=== PATIENT | male | born 1980 | race Caucasian/White ===

== ENCOUNTER 2021-09-16 14:11 | Emergency (ER) | payer BC ==
--- NOTE | 2021-09-16 14:40 | ED Physician Documentation ---
PD HPI LOWER EXT INJURY - Stated complaint Stated Complaint: L LEG CUT - Chief complaint Chief Complaint: Laceration - History obtained from History obtained from: Patient - History of Present Illness PD HPI LOW EXT INJURY LOCATION: Left, Lower leg Type of injury: Laceration (using chainsaw and tip slipped and cut just to inside of chainsaw chaps, through pants. Able to walk. He quickly bandaged it/direct pressure for bleeding. No spurting of blood.) Timing - onset: Today (just [employer]) Timing - details: Abrupt onset, Still present Worsened by: Palpating Associated symptoms: No: Weakness, Numbness Similar symptoms before: Has not had sx before Review of Systems Skin: reports: Laceration (s) Neurologic: denies: Focal weakness, Numbness PD PAST MEDICAL HISTORY - Past Medical History Cardiovascular: None Respiratory: None Endocrine/Autoimmune: None - Allergies Allergies/Adverse Reactions: Allergies Allergy/AdvReac Type Severity Reaction Status Date / Time Penicillins Allergy Unknown Verified 09/16/21 14:37 PD ED PE NORMAL - Vitals Vital signs reviewed: Yes - General General: Alert and oriented X 3, No acute distress, Well developed/nourished - Derm Derm: Normal color, Warm and dry - Extremities Extremities: Other (left anteromedial vertical lac to fatty tissue just medial to anterior tibial ridge with mild sawdust and clothing fibers seen superficially and removed. edges are irregular c/w chainsaw injury. ) - Neuro Neuro: Alert and oriented X 3, No motor deficit, No sensory deficit Results - Vitals Vitals: Oxygen O2 Source Room air - Rads (name of study) left tib/fib Radiology: Prelim report reviewed, See rad report (no fracture, no FB. soft tissue lucencies c/w laceration.) Procedures - Laceration (location) left lower leg anteriorly Length in cm: 6 Wound type: Linear, Into subcut fat, Contaminated (small pieces of clothing threads and some sawdust appearance, easily removed with forceps and irrigation until clean.) Neurovascular status: Sensory intact, Motor intact, Vascular intact Anesthesia: Lidocaine 1% with epi Wound preparation: Irrigated copiously NS, Wound explored, To the base, FB identified, FB removed, debridement of wound edges (traumatic laceration/avulsion) Deep layer closure: Vicryl, size #-0 - enter number (4), # sutures - enter number (running subdermal) Skin layer closure: Nylon, Running, Size #-0 - enter number (4) Other: Patient tolerated well, No complications, Neurovascular intact, Dressing applied, Tetanus UTD PD MEDICAL DECISION MAKING - ED course Complexity details: considered differential, d/w patient Departure - Departure Disposition: 01 Home, Self Care Clinical Impression: Laceration of lower leg Qualifiers: Encounter type: initial encounter Laterality: left Qualified Code(s): S81.812A - Laceration without foreign body, left lower leg, initial encounter Condition: Stable Record reviewed to determine appropriate education?: Yes Instructions: ED Laceration Ext Sutr Stap Tape Comments: It is okay to wash and shower. Clean off the wound twice a day with soap and water, or peroxide and water. Apply some antibiotic ointment to it to keep it moist. Also to watch for signs of infection such as purulence, redness or increasing pain. Return to your primary care, walk in clinic or the ER at the specified time for suture removal. Tylenol ibuprofen as needed for pain. Activity as tolerated. Suture removal 10 to 14 days. Discharge Date/Time: 09/16/21 16:38
[2021-09-16] MEDS ORDERED: LIDOCAINE 1%-EPI 1:100000 20 ML MDV SUBQ STA (14:53)
[2021-09-16] MEDS ORDERED: IBUPROFEN 600 MG TABLET PO STA (14:54)
--- NOTE | 2021-09-16 16:36 | XRAY Report ---
PROCEDURE: Tib/Fib LT INDICATIONS: Chains of cut left lower leg TECHNIQUE: 2 views of the tibia and fibula were acquired. COMPARISON: None FINDINGS: Bones: No fractures or dislocations. No suspicious bony lesions. Soft tissues: Lucencies in the soft tissues of the medial left calf. No radiopaque foreign body. No suspicious soft tissue calcifications or masses. IMPRESSION: Lucencies in the left medial calf soft tissues consistent with a laceration. No radiopaque foreign rosalba dy. No fracture. Reviewed by: Holland Hinds MD on 09/16/2021 4:34 PM PST Approved by: Holland Hinds MD on 09/16/2021 4:34 PM PST Station ID: [id number]
[2021-09-16 16:38] VITALS: BP 155/67
== END 2021-09-16 16:38 | disposition home or self-care (01) ==
LOC: ED 14:11
DX: S81.812A Laceration without foreign body, left lower leg, initial encounter (principal); W29.3XXA Contact with powered garden and outdoor hand tools and machinery, initial encounter
CPT/HCPCS: 12002; 73590; 99282; 99283; A9270

== ENCOUNTER 2021-09-19 13:21 | Outpatient (CLI) | payer BC ==
--- NOTE | 2021-09-19 14:38 | XRAY Report ---
PROCEDURE: Tib/Fib LT INDICATIONS: CELLULITIS, LEG, LEFT TECHNIQUE: 2 views of the tibia and fibula were acquired. COMPARISON: Left tibia/fibula radiographs 09/16/2021 FINDINGS: Bones: No acute fractures or dislocations. No suspicious bony lesions. Soft tissues: No suspicious soft tissue calcifications or masses. Lucency at the medial aspect of t he left calf have decreased compared to the prior radiographs. No radiopaque foreign body. IMPRESSION: No acute osseous abnormality. Decreased lucency within the soft tissues of the medial calf when gian red to the prior radiographs and is most likely related to air introduced during the prior laceration , although infection with a gas-forming organism cannot be entirely excluded. Recommend clinical nati elation and follow-up. Reviewed by: Syed Douglas MD on 09/19/2021 2:37 PM PST Approved by: Syed Douglas MD on 09/19/2021 2:37 PM PST Station ID: [id number]
[2021-09-19 19:53] LABS: BASOPHILS % (AUTO) 0.5 %; EOSINOPHILS # (AUTO) 0.1 10^3/uL (0.0-0.7); EOSINOPHILS % (AUTO) 1.3 %; HCT - HEMATOCRIT 41.7 % (42.0-52.0); HGB - HEMOGLOBIN 13.6 g/dL (14.0-18.0); LYMPHOCYTES # (AUTO) 1.6 10^3/uL (1.5-3.5); LYMPHOCYTES % (AUTO) 19.4 %; MEAN CORPUSCULAR HEMOGLOBIN 29.8 pg (27.0-31.0); MEAN CORPUSCULAR HGB CONC 32.6 g/dL (32.0-36.0); MEAN CORPUSCULAR VOLUME 91.2 fL (80.0-94.0); MONOCYTES # (AUTO) 0.7 10^3/uL (0.0-1.0); NEUTROPHILS # (AUTO) 5.9 10^3/uL (1.5-6.6); NEUTROPHILS % (AUTO) 70.6 %; PLT - PLATELET COUNT 190 10^3/uL (130-450); RED BLOOD COUNT 4.57 10^6/uL (4.70-6.10); RED CELL DISTRIBUTION WIDTH 12.6 % (12.0-15.0); WHITE BLOOD COUNT 8.3 x10^3/uL (4.8-10.8)
== END 2021-09-19 13:22 | disposition home or self-care (01) ==
LOC: DI.S 13:21
PROVIDERS: ATTEND Internal Medicine
DX: L03.116 Cellulitis of left lower limb (principal); R93.6 Abnormal findings on diagnostic imaging of limbs; R93.89 Abnormal findings on diagnostic imaging of other specified body structures
CPT/HCPCS: 36415; 85025